=== PATIENT | male | born 1995 | race African-American/Black ===

== ENCOUNTER 2020-07-09 14:02 | Outpatient (CLI) | payer OTHER ==
[~2020-07-09 14:02] MED LIST: Iopamidol-370 76% 500 ML 1 ML ONE
--- NOTE | 2020-07-09 14:57 | CT ---
CT ABDOMEN AND PELVIS WITH ORAL AND IV CONTRAST: 07/09/20 HISTORY: Lower back and lower abdominal pain. Concern for inguinal hernia. FINDINGS: The liver, spleen, pancreas, adrenal gland and kidneys are normal. No calcified gallstones are seen. No free air, free fluid or lymphadenopathy is noted in the abdomen or pelvis. The small bowel loops a re not abnormally dilated. A normal appearing appendix is present. The bony structures are unremarkab le. No abdominal wall or inguinal hernia is seen. IMPRESSION: Normal exam. POS: OFF
== END 2020-07-09 14:03 | disposition home or self-care (01) ==
LOC: BICCT 14:02
PROVIDERS: ATTEND Family Medicine
DX: K40.90 Unilateral inguinal hernia, without obstruction or gangrene, not specified as recurrent (principal); S33.5XXA Sprain of ligaments of lumbar spine, initial encounter; S23.3XXA Sprain of ligaments of thoracic spine, initial encounter
CPT/HCPCS: 74177; Q9967